=== PATIENT | female | born 1960 | race Caucasian/White ===

== ENCOUNTER → 2020-04-12 | Outpatient (CLI) | payer BC ==
[2020-04-12 15:37] LABS: Basophils % (A) 1 %; Eosinophils # (A) 0.1 k/uL (0-0.7); Eosinophils % (A) 2 %; HCT 42.6 % (34.0-46.0); HGB 13.3 gm/dL (11.4-16.0); Lymphocytes # (A) 1.2 k/uL (1.0-4.8); Lymphocytes % (A) 19 %; MCH 31.1 pg (25.0-35.0); MCHC 31.1 g/dL (31.0-37.0); MCV 99.7 fL (80.0-100.0); Mean Platelet Volume 7.5; Monocytes # (A) 0.5 k/uL (0-1.0); Monocytes % (A) 7 %; Neutrophils # (A) 4.6 k/uL (1.3-7.7); Neutrophils % (A) 70 %; Platelet Count 322 k/uL (150-450); RBC 4.27 m/uL (3.80-5.40); RDW 12.3 % (11.5-15.5); WBC 6.6 k/uL (3.8-10.6)
[2020-04-13 02:41] LABS: Erythrocyte Sedimentation Rate 5 mm/Hr (0-30)
[2020-04-13 07:07] LABS: ALT 20 U/L (8-44); AST 25 U/L (13-35); African American GFR (CKD) 81.1 (60.0-200.0); Albumin/Globulin Ratio 2.61 (1.60-3.17); Alkaline Phosphatase 76 U/L (41-126); BUN/Creat Ratio 24.44 Ratio (12.00-20.00); C Reactive Protein <0.4 mg/dL (0.0-0.8); Carbon Dioxide 26.8 mmol/L (21.6-31.8); Chloride 104 mmol/L (96-109); Folate, Serum >24.0 ng/mL; Globulin 1.8 g/dL (1.6-3.3); Glucose 135 mg/dL (70-110); Potassium 4.3 mmol/L (3.5-5.5); Sodium 142 mmol/L (135-145); Total Bilirubin 0.4 mg/dL (0.3-1.2); Total Protein 6.5 g/dL (6.2-8.2)
== END | disposition home or self-care (01) ==
LOC: LABWHC1 15:13
PROVIDERS: ATTEND Nurse Practitioner
DX: K51.30 Ulcerative (chronic) rectosigmoiditis without complications (principal)
CPT/HCPCS: 36415; 80053; 82746; 85025; 85652; 86140

== ENCOUNTER → 2021-01-25 | Day surgery (SDC) | payer BC ==
[2021-01-24 13:34] VITALS: BMI 23.9
[~2021-01-25] MED LIST: LIDOCAINE 1% (10MG/ML) FOR IV START INTRADERMA ONE; PROPOFOL 10 MG/ML 20 ML VIAL IV ONE
[2021-01-25] MEDS: LACTATED RINGERS 1,000 ML IV SCH ×2 (11:27→12:08)
[2021-01-25 11:29] VITALS: TEMP 98.9
--- NOTE | 2021-01-25 12:27 | P.PCN ---
Date of Procedure: 01/25/21 Procedure(s) Performed: BRIEF HISTORY: Patient is a 60-year-old pleasant white female scheduled for an elective colonoscopy as a part of surveillance of ulcerative colitis diagnosed in 1995. She is maintained on interferon 1 g 4 times daily. Recently had a flareup and was treated with one centimeters and she is in clinical remission. PROCEDURE PERFORMED: Colonoscopy with random biopsy. PREOPERATIVE DIAGNOSIS: Screening history of ulcerative colitis. IV sedation per Anesthesia. PROCEDURE: After informed consent was obtained, the patient, was brought into the endoscopy unit. IV sedation was administered by Anesthesia under continuous monitoring. Digital rectal examination was normal. Initially the Olympus CF-160 flexible video colonoscope was then inserted in the rectum, gradually advanced into the cecum without any difficulty. Careful examination was performed as the scope was gradually being withdrawn. Ileocecal valve and the appendiceal orifice were visualized and appeared normal. Prep was excellent. Mucosa of the cecum, ascending colon, transverse colon, descending colon, sigmoid colon, and rectum appeared normal. Random biopsies were done from the cecum rectum at every 10 cm into well. Retroflexion was performed in the rectum and no lesions were seen. The patient tolerated the procedure well. IMPRESSION: Normal-appearing colon from rectum to cecum with no evidence of active colitis or colorectal neoplasia. . RECOMMENDATIONS: Findings of this examination were discussed with the patient as well as his family. He was advised to follow with the biopsy results. If the biopsy has no evidence of dysplasia, she can have a repeat colonoscopy in 2 years..
[2021-01-25 12:35] VITALS: RESP 17
[2021-01-25 12:50] VITALS: BP 143/81; PULSE 84
== END ==
LOC: ORWHC2ENDO 10:54
PROVIDERS: ATTEND Internal Medicine Gastroenterology
DX: K51.90 Ulcerative colitis, unspecified, without complications (principal); Z88.2 Allergy status to sulfonamides
CPT/HCPCS: 45380; 88305; 88313; J2704

== ENCOUNTER → 2021-05-31 | Outpatient (CLI) | payer BC ==
[~2021-05-31] MED LIST changes: +CASIRIVIMAB (REGN10933) (EUA) 600 MG, IMDEVIMAB (REGN10987) (EUA) 600 MG in SODIUM CHLO... IVPB ONE; -LIDOCAINE 1% (10MG/ML) FOR IV START INTRADERMA ONE; -PROPOFOL 10 MG/ML 20 ML VIAL IV ONE; +SODIUM CHLORIDE 0.9% 50 ML IVPB ONE; +SODIUM CHLORIDE 0.9% 500 ML 500 ML in EMPTY BAG 1 BAG IV PRN
[2021-05-31 10:53] VITALS: RESP 16
[2021-05-31 10:56] VITALS: TEMP 99.1
[2021-05-31 11:19] VITALS: BP 127/75; PULSE 76
== END ==
LOC: PROCWHC3 09:58
PROVIDERS: ATTEND Family Medicine
DX: U07.1 COVID-19 (principal); Z87.891 Personal history of nicotine dependence
CPT/HCPCS: 96360; Q0243; M0243

== ENCOUNTER 2023-05-17 18:31 | Emergency (ER) | payer BC, OTHER ==
[2023-05-17] MEDS ORDERED: KETOROLAC 15 MG/ML 1 ML VIAL IM STA (18:44)
--- NOTE | 2023-05-17 18:52 | ED ---
Upper Extremity HPI - General Chief Complaint: Extremity Injury, Upper Stated Complaint: Fall, left wrist injury Time Seen by Provider: 05/17/23 18:39 Source: patient, RN notes reviewed Mode of arrival: ambulatory Limitations: no limitations - History of Present Illness Initial Comments: Patient is 62-year-old female presenting to the ER with chief complaint of a left wrist injury. Patient states she was sitting on a stool and accidentally fell off and she put on her wrist to brace her fall. She states she felt immediate pain rating it 10/10. Any movement increases her pain. Denies any numbness or tingling in her fingers, pain in elbow, or other injuries. - Related Data Home Medications Medication Instructions Recorded Confirmed Multivitamins, Thera [Multivitamin] 1 tab PO DAILY 12/04/15 05/31/21 Early-3 Fatty Acids [Early-3] 1,000 mg PO DAILY 12/04/15 05/31/21 sulfaSALAzine [Azulfidine] 1,000 mg PO QID 12/04/15 05/31/21 Biotin [Biotin Disolve] 5,000 mcg PO DAILY 01/24/21 05/31/21 Cholecalciferol [Vitamin D3 (25 25 mcg PO DAILY 01/24/21 05/31/21 Mcg = 1000 Iu)] Ubidecarenone [Co Q-10] 100 mg PO DAILY 01/24/21 05/31/21 Previous Rx's Medication Instructions Recorded Ibuprofen [Motrin] 800 mg PO Q6HR #20 tab 05/17/23 Allergies Allergy/AdvReac Type Severity Reaction Status Date / Time No Known Allergies Allergy Verified 05/17/23 18:37 Review of Systems ROS Statement: Those systems with pertinent positive or pertinent negative responses have been documented in the HPI. ROS Other: All systems not noted in ROS Statement are negative. Past Medical History Additional Past Medical History / Comment(s): ulcerative colitis-currently slight flare up History of Any Multi-Drug Resistant Organisms: None Reported Past Surgical History: Section Additional Past Surgical History / Comment(s): colonoscopies Past Anesthesia/Blood Transfusion Reactions: Motion Sickness Past Psychological History: No Psychological Hx Reported Smoking Status: Former smoker Past Alcohol Use History: Occasional Past Drug Use History: None Reported - Past Family History Father Family Medical History: Cancer General Exam Limitations: no limitations General appearance: alert, in no apparent distress Head exam: Present: atraumatic, normocephalic, normal inspection Eye exam: Present: normal appearance, PERRL, EOMI. Absent: scleral icterus, conjunctival injection, periorbital swelling Respiratory exam: Present: normal lung sounds bilaterally. Absent: respiratory distress, wheezes, rales, rhonchi, stridor Cardiovascular Exam: Present: regular rate, normal rhythm, normal heart sounds. Absent: systolic murmur, diastolic murmur, rubs, gallop, clicks Extremities exam: Present: other (edema noted of left wrist. limited ROM due to pain. 2+ left radial pulse) Course Vital Signs 05/17/23 18:33 Temperature 97.8 F Pulse Rate 64 Respiratory 18 Rate Blood Pressure 119/79 O2 Sat by Pulse 94 L Oximetry Procedures - Orthopedic Splinting/Casting Injury #1 Side: left Upper Extremity Injury Location: wrist Upper Extremity Immobilizer: wrist splint Medical Decision Making - Medical Decision Making Was pt. sent in by a medical professional or institution (, PA, DIGITAL PROGRAM MANAGER, urgent care, hospital, or care home...) When possible be specific @ -No Did you speak to anyone other than the patient for history (EMS, parent, family, police, friend...)? What history was obtained from this source @ -Family Did you review nursing and triage notes (agree or disagree)? Why? @ -I reviewed and agree with nursing and triage notes Were old charts reviewed (outside hosp., previous admission, EMS record, old EKG, old radiological studies, urgent care reports/EKG's, care home records)? Report findings @ -No old charts were reviewed Differential Diagnosis (chest pain, altered mental status, abdominal pain women, abdominal pain men, vaginal bleeding, weakness, fever, dyspnea, syncope, headache, dizziness, GI bleed, back pain, seizure, CVA, palpatations, mental health, musculoskeletal)? @ -Differential Musculoskeletal: Muscular strain, contusion, ligament sprain, fracture, arthritis, septic arthritis, bursitis, cellulitis, muscle spasm, nerve compression, DVT, arterial occlusion, herpes zoster, electrolyte abnormality, tumor.... This is not meant to be in all inclusive list EKG interpreted by me (3pts min.). @ -None X-rays interpreted by me (1pt min.). @ -Left wrist x-ray shows a distal radius fracture with intra-articular extension and shortening. CT interpreted by me (1pt min.). @ -None done U/S interpreted by me (1pt. min.). @ -None done What testing was considered but not performed or refused? (CT, X-rays, U/S, labs)? Why? @ -None What meds were considered but not given or refused? Why? @ -None Did you discuss the management of the patient with other professionals (professionals i.e. , PA, DIGITAL PROGRAM MANAGER, lab, RT, psych nurse, manager social work, rail car mechanic, teacher, correctional officer captain, case finishing machine adjuster)? Give summary @ -No Was smoking cessation discussed for >3mins.? @ -No Was critical care preformed (if so, how long)? @ -No Were there social determinants of health that impacted care today? How? (Homelessness, low income, unemployed, alcoholism, drug addiction, transportation, low edu. Level, literacy, decrease access to med. care, retirement, rehab)? @ -No Was there de-escalation of care discussed even if they declined (Discuss DNR or withdrawal of care, Hospice)? DNR status @ -No What co-morbidities impacted this encounter? (DM, HTN, Smoking, COPD, CAD, Cancer, CVA, ARF, Chemo, Hep., AIDS, mental health diagnosis, sleep apnea, morbid obesity)? @ -None Was patient admitted / discharged? Hospital course, mention meds given and route, prescriptions, significant lab abnormalities, going to OR and other pertinent info. @ -Discharged. Upon examination, patient's left wrist was very tender to touch with limited ROM due to pain. 2+ left radial pulse. X-rays of the left wrist were obtained and showed distal radius fracture with intra-articular extension and shortening. Patient received IM Toradol and PO motrin 800 for pain control. Patient was placed in a splint. Patient will be discharged with a prescription of motrin 800. I advised her to follow-up with orthopedics as soon as possible. Return parameters were discussed. Patient expressed understanding and agreement with care plan. Undiagnosed new problem with uncertain prognosis? @ -No Drug Therapy requiring intensive monitoring for toxicity (Heparin, Nitro, Insulin, Cardizem)? @ -No Were any procedures done? @ -Yes Diagnosis/symptom? @ -Left distal radius fracture Acute, or Chronic, or Acute on Chronic? @ -Acute Uncomplicated (without systemic symptoms) or Complicated (systemic symptoms)? @ -Uncomplicated Side effects of treatment? @ -No Exacerbation, Progression, or Severe Exacerbation? @ -No Poses a threat to life or bodily function? How? (Chest pain, [place], [place], pneumonia, PE, COPD, DKA, ARF, appy, cholecystitis, CVA, Diverticulitis, Homicidal, Suicidal, threat to staff... and all critical care pts) @ -No - Radiology Data Radiology results: report reviewed, image reviewed Disposition Clinical Impression: Distal radius fracture Disposition: HOME SELF-CARE Condition: Stable Additional Instructions: Please return to the Emergency Department if symptoms worsen or any other concerns. Please follow-up with orthopedics as soon as possible. Prescriptions: Ibuprofen [Motrin] 800 mg PO Q6HR #20 tab Is patient prescribed a controlled substance at d/c from ED?: No Referrals: Zohra Kirk MD [Primary Care Provider] - 1-2 days Freeman Reynolds DO [Doctor of Osteopathic Medicine] - 1-2 days Time of Disposition: 19:34
[2023-05-17 19:00] VITALS: TEMP 97.8
--- NOTE | 2023-05-17 19:09 | XR ---
EXAMINATION TYPE: XR wrist complete LT DATE OF EXAM: 05/17/2023 6:58 PM CLINICAL INDICATION:Female, 62 years old with history of pain; [facility] COMPARISON: None TECHNIQUE: XR wrist complete LT; examined in the Frontal, navicular, lateral, and oblique. FINDINGS/IMPRESSION: Distal radius fracture with intra-articular extension and shortening. No additional fractures. Multif ocal osteoarthrosis changes.
[2023-05-17] MEDS ORDERED: IBUPROFEN 800 MG TAB PO STA (19:24)
[2023-05-17 19:47] VITALS: BP 118/79; PULSE 60; RESP 17
== END 2023-05-17 19:47 | disposition home or self-care (01) ==
LOC: EC 18:31
DX: S52.572A Other intraarticular fracture of lower end of left radius, initial encounter for closed fracture (principal); Z87.891 Personal history of nicotine dependence; W18.11XA Fall from or off toilet without subsequent striking against object, initial encounter
CPT/HCPCS: 99283; 96372; 73110; 29125; J1885

== ENCOUNTER → 2023-05-18 | Outpatient (CLI) | payer OTHER ==
--- NOTE | 2023-05-18 15:41 | CT ---
EXAMINATION TYPE: CT wrist LT wo con CT DLP: 146.2 mGycm, Automated exposure control for dose reduction was used. DATE OF EXAM: 05/18/2023 3:36 PM COMPARISON: Left wrist radiograph 05/17/2023 CLINICAL INDICATION:Female, 62 years old with history of M25.532 PAIN IN LE, S52.572A OTH INTARTIC FR ACTURE; [facility], left wrist fx TECHNIQUE: Axial images were obtained of the first without the use of IV contrast. Additional vega l and sagittal reformatted images and soft tissue and bone window were obtained for review. 3-D recon struction was created on a separate workstation. FINDINGS: Redemonstration of acute distal radius comminuted fracture with intraarticular extension in to the radiocarpal joint. There is approximately 4 mm of shortening identified. Surrounding soft tiss ue swelling identified. There is widening of the scapholunate interval of approximately 6 mm. Geode i dentified within the lunate. Degenerative changes of the first CMC joint. No dislocation identified. IMPRESSION: 1. Redemonstration of acute distal radius comminuted fracture with intra-articular extension to the radiocarpal joint. 2. Widening of the scapholunate interval suggesting ligamentous injury.
== END | disposition home or self-care (01) ==
LOC: RADCTMAIN 15:13
PROVIDERS: ATTEND Orthopaedic Surgery
DX: S52.572A Other intraarticular fracture of lower end of left radius, initial encounter for closed fracture (principal); M25.532 Pain in left wrist

== ENCOUNTER 2024-05-11 06:26 | Day surgery (SDC) | payer OTHER ==
[2024-05-11 07:01] VITALS: TEMP 99
[2024-05-11] MEDS: LACTATED RINGERS 1,000 ML IV SCH (07:10)
[2024-05-11] MEDS: IV FLUID CONTINUATION 1,000 ML IV ONE (07:10)
[2024-05-11] MEDS ORDERED: PROPOFOL 10 MG/ML 20 ML VIAL IV ONE (07:21)
[2024-05-11] MEDS ORDERED: LIDOCAINE 1% INJ 10MG/ML (20 ML MDV) ONE (07:21)
[2024-05-11 07:46] VITALS: RESP 16
--- NOTE | 2024-05-11 07:48 | P.PCN ---
Date of Procedure: 05/11/24 Procedure(s) Performed: Brief history: Patient is a pleasant 63-year-old white female scheduled for an elective upper endoscopy as well as colonoscopy as a part of evaluation of GERD and screening for colon cancer.History of ulcerative colitis diagnosed in 1995. She had a flareup about a month ago and started on steroid enemas. Last colonoscopy 3 years ago was normal. Procedure performed: Esophagogastroduodenoscopy with biopsy Colonoscopy with biopsy Preoperative diagnosis: GERD For colon cancer and also history of ulcerative colitis Anesthesia: MAC Procedure: After informed consent was obtained from the patient was brought into the endoscopy unit and IV sedation was administered by anesthesia under continuous monitoring. Initially upper endoscopy was done. The Olympus GF 160 video endoscope was inserted inserted into the mouth and esophagus intubated without any difficulty and was gradually advanced into the stomach and duodenum and carefully examined. The bulb and second part of the duodenum appeared normal. The scope was then withdrawn into the stomach adequately insufflated with air and upon careful examination the antrum had mild gastritis and biopsies were done from this area. No gastric polyps noted. Mucosa of the body, cardia and fundus appeared normal. The scope was then withdrawn into the esophagus. The GE junction was located at 40 cm to the incisors. It appeared regular with no erythema erosions or ulcerations. Rest of the esophagus appeared normal. Pat ient tolerated the procedure well. At this time the patient continued to remain sedation. Initial digital rectal examination was normal. Olympus CF 160 video colonoscope was then inserted into the rectum and gradually advanced to the cecum without any difficulty. Careful examination was performed as the scope was gradually being withdrawn. The prep was excellent. The cecum, ascending colon, transverse colon were normal. There was active colitis with mucosal erythema friability granularity spontaneous oozing friability and mild narrowing of the colon extending from 30 to 45 cm from the anal verge and multiple biopsies were done from this area. The distal sigmoid colon and rectum appeared normal. Biopsies were done from the rectosigmoid every 10 cm intervals retroflexion was performed in the rectum and no lesions were noted. Patient tolerated the procedure well. Impression: 1. Upper endoscopy revealed mild gastritis and small gastric polyps 2. Colonoscopy revealed severe segmental colitis involving the proximal sigmoid colon and distal descending colon extending from 30 to 50 cm from anal verge with severe cobblestoning of the mucosa, erosions ulcerations friability and spontaneous exudates consistent with severe colitis. Rest of the colon appeared normal Recommendations: Findings of this examination were discussed with the patient as well as family. She was advised to follow with the biopsy results. She will be started on oral prednisone 40 mg daily and advised to taper it by 5 mg every week. Follow-up in the office in 3 to 4 weeks. If the biopsy does not show any evidence of dysplasia she can have repeat colonoscopy in 2 years.
[2024-05-11 08:01] VITALS: BP 132/72; PULSE 80
== END 2024-05-11 08:51 | disposition home or self-care (01) ==
LOC: ORWHC2ENDO 06:26
PROVIDERS: ATTEND Internal Medicine Gastroenterology
DX: K29.50 Unspecified chronic gastritis without bleeding (principal); K31.7 Polyp of stomach and duodenum; K51.90 Ulcerative colitis, unspecified, without complications; C18.9 Malignant neoplasm of colon, unspecified; K21.9 Gastro-esophageal reflux disease without esophagitis; Z79.899 Other long term (current) drug therapy
CPT/HCPCS: 88305; 88313; 45380; 43239; J2003; J2704

== ENCOUNTER → 2024-07-07 | Outpatient (CLI) | payer OTHER ==
[2024-07-07 21:00] LABS: Hepatitis B Surface Antigen Nonreactive (Nonreactive); Hepatitis C IgG Antibody Nonreactive (Nonreactive)
[2024-07-07 21:13] LABS: ALT 18 U/L (8-44); AST 20 U/L (13-35); Albumin 4.3 g/dL (3.8-4.9); Albumin/Globulin Ratio 1.95 Ratio (1.60-3.17); Alkaline Phosphatase 86 U/L (41-126); BUN/Creat Ratio 33.86 Ratio (12.00-20.00); Blood Urea Nitrogen 23.7 mg/dL (9.0-27.0); Calcium 9.8 mg/dL (8.7-10.3); Carbon Dioxide 27.1 mmol/L (21.6-31.8); Chloride 104 mmol/L (96-109); Globulin 2.2 g/dL (1.6-3.3); Glucose 136 mg/dL (70-110); Potassium 4.2 mmol/L (3.5-5.5); Sodium 142 mmol/L (135-145); Total Bilirubin <0.2 mg/dL (0.3-1.2); Total Protein 6.5 g/dL (6.2-8.2)
[2024-07-07 21:50] LABS: Basophils # (A) 0.03 X 10*3/uL (0.00-0.10); Basophils % (A) 0.5 %; Eosinophils # (A) 0.05 X 10*3/uL (0.04-0.35); Eosinophils % (A) 0.8 %; HCT 45.4 % (37.2-46.3); HGB 14.4 g/dL (12.0-15.0); Lymphocytes # (A) 1.07 X 10*3/uL (0.90-5.00); Lymphocytes % (A) 16.1 %; MCH 30.6 pg (27.0-32.0); MCHC 31.7 g/dL (32.0-37.0); MCV 96.4 FL (80.0-97.0); Mean Platelet Volume 10.9 FL (9.5-12.2); Monocytes # (A) 0.97 X 10*3/uL (0.20-1.00); Monocytes % (A) 14.6 %; NRBC Per 100 WBC 0 X 10*3/uL (0.00-0.01); Neutrophils # (A) 4.48 X 10*3/uL (1.80-7.70); Neutrophils % (A) 67.5 %; Platelet Count 392 X 10*3/uL (140-440); RBC 4.71 X 10*6/uL (4.10-5.20); RDW 11.4 % (11.5-14.5); WBC 6.63 X 10*3/uL (4.50-10.00)
== END | disposition home or self-care (01) ==
LOC: LABWHC1 14:42
PROVIDERS: ATTEND Nurse Practitioner Family
DX: K51.30 Ulcerative (chronic) rectosigmoiditis without complications (principal)
CPT/HCPCS: 36415; 80053; 85025; 86480; 86704; 86803; 87340

== ENCOUNTER → 2024-07-12 | Outpatient (CLI) | payer OTHER | END | disposition home or self-care (01) | LOC: LABWHC1 11:46 | PROVIDERS: ATTEND Internal Medicine Gastroenterology | DX: Z11.7 Encounter for testing for latent tuberculosis infection (principal) | CPT/HCPCS: 36415; 86480 ==

== ENCOUNTER → 2024-07-12 | Outpatient (CLI) | payer OTHER ==
--- NOTE | 2024-07-12 11:44 | XR ---
EXAMINATION TYPE: XR chest 2V DATE OF EXAM: 07/12/2024 11:38 AM COMPARISON: None. CLINICAL INDICATION: Female, 63 years old with history of Z11.7 testing for latent TB, TECHNIQUE: Frontal and lateral views of the chest are obtained. FINDINGS: There is no focal air space opacity, pleural effusion, or pneumothorax seen. The cardiac silhouette size is within normal limits. Degenerative change bilateral glenohumeral joints. IMPRESSION: No acute cardiopulmonary process. [facility], , 07/12/2024 11:41 AM
== END | disposition home or self-care (01) ==
LOC: RADXRMAIN 11:22
PROVIDERS: ATTEND Internal Medicine Gastroenterology
DX: Z11.7 Encounter for testing for latent tuberculosis infection (principal)
CPT/HCPCS: 71046

== ENCOUNTER → 2024-09-28 | Outpatient (CLI) | payer OTHER ==
[2024-09-28 15:31] LABS: BUN/Creat Ratio 26.88 Ratio (12.00-20.00); Blood Urea Nitrogen 21.5 mg/dL (9.0-27.0); Chloride 100 mmol/L (96-109); Glucose 103 mg/dL (70-110); Potassium 4.2 mmol/L (3.5-5.5); Sodium 139 mmol/L (135-145)
[2024-09-28 15:32] LABS: ALT 21 U/L (8-44); AST 27 U/L (13-35); Albumin 4.6 g/dL (3.8-4.9); Albumin/Globulin Ratio 1.92 Ratio (1.60-3.17); Alkaline Phosphatase 80 U/L (41-126); Calcium 9.7 mg/dL (8.7-10.3); Carbon Dioxide 26.8 mmol/L (21.6-31.8); Globulin 2.4 g/dL (1.6-3.3); Total Bilirubin 0.3 mg/dL (0.3-1.2)
[2024-09-28 16:01] LABS: Basophils # (A) 0.03 X 10*3/uL (0.00-0.10); Basophils % (A) 0.3 %; Eosinophils # (A) 0.02 X 10*3/uL (0.04-0.35); Eosinophils % (A) 0.2 %; HCT 41.1 % (37.2-46.3); HGB 12.6 g/dL (12.0-15.0); Lymphocytes # (A) 1.28 X 10*3/uL (0.90-5.00); Lymphocytes % (A) 14.3 %; MCH 29.9 pg (27.0-32.0); MCHC 30.7 g/dL (32.0-37.0); MCV 97.6 FL (80.0-97.0); Mean Platelet Volume 10.5 FL (9.5-12.2); Monocytes # (A) 0.76 X 10*3/uL (0.20-1.00); Monocytes % (A) 8.5 %; NRBC Per 100 WBC 0 X 10*3/uL (0.00-0.01); Neutrophils # (A) 6.85 X 10*3/uL (1.80-7.70); Neutrophils % (A) 76.3 %; Platelet Count 415 X 10*3/uL (140-440); RBC 4.21 X 10*6/uL (4.10-5.20); RDW 13.8 % (11.5-14.5); WBC 8.98 X 10*3/uL (4.50-10.00)
== END | disposition home or self-care (01) ==
LOC: LABWHC1 10:09
PROVIDERS: ATTEND Internal Medicine Gastroenterology
DX: K51.30 Ulcerative (chronic) rectosigmoiditis without complications (principal)
CPT/HCPCS: 36415; 80053; 85025